=== PATIENT | male | born 1995 | race Two or more races ===

== ENCOUNTER → 2018-11-27 | Outpatient (CLI) | payer BC, OTHER ==
[~2018-11-27] MED LIST: ATIV1TAB7 PO; DEPA1TAB3 PO; DEPA250T2 PO; DEPA500T2 PO; FOLI400T PO; MAGN1TAB26 PO; MULTCAP PO; NICO7DIS2 TD; THIA50CA PO; WELLTAB38 PO
[2018-11-27 17:46] LABS: BASO # 0.1 10^3/uL (0.0-0.2); BASO % 0.6 % (0.0-1.0); EOS # 0.3 10^3/uL (0.0-0.5); EOS % 3.2 % (0.0-3.0); HEMATOCRIT 48.8 % (42.0-52.0); HEMOGLOBIN 16.3 g/dl (13.5-17.5); LYMPH % 35.2 % (24.0-44.0); MEAN CORPUSCULAR HEMOGLOBIN 28.6 pg (27.0-33.0); MEAN CORPUSCULAR HGB CONC 33.4 g/dl (32.0-36.5); MEAN CORPUSCULAR VOLUME 85.8 fl (80.0-96.0); MONO # 0.7 10^3/uL (0.0-0.8); MONO % 8.2 % (0.0-5.0); NEUTROPHILS # 4.5 10^3/uL (1.5-8.5); NEUTROPHILS % 52.6 % (36.0-66.0); PLATELET COUNT, AUTOMATED 340 10^3/uL (150-450); RED BLOOD COUNT 5.69 10^6/uL (4.30-6.10); WHITE BLOOD COUNT 8.5 10^3/uL (4.0-10.0)
[2018-11-27 22:44] LABS: CHLAMYDIA DNA AMPLIFICATION NEGATIVE (NEGATIVE); GC DNA AMPLIFICATION NEGATIVE (NEGATIVE)
[2018-11-30 00:06] LABS: PSA TOTAL 0.8 ng/mL (0.0-4.0)
== END ==
LOC: M LABDRWAD 14:52
PROVIDERS: ATTEND Physician Assistant
DX: R39.12 Poor urinary stream (principal); N53.19 Other ejaculatory dysfunction

== ENCOUNTER 2019-05-13 22:54 | Emergency (ER) | payer BC, OTHER ==
[~2019-05-13] VITALS: Ht 172.7 cm; Wt 94.6 kg
[2019-05-13 23:05] VITALS: BP 180/96
[2019-05-13] MEDS ORDERED: BACT800T5 PO (23:34)
[2019-05-14] MEDS ORDERED: BACTRIM 160MG/800MG DS TAB PO ONE (00:15)
== END 2019-05-14 00:20 | disposition home or self-care (01) ==
LOC: M ED 22:54
DX: N41.0 Acute prostatitis (principal); Z79.2 Long term (current) use of antibiotics

== ENCOUNTER → 2019-06-23 | Outpatient (REF) | payer BC ==
[~2019-06-23] MED LIST changes: +BACT800T5 PO
[2019-06-23 17:34] LABS: ALBUMIN 4.5 GM/DL (3.2-5.2); ALT/SGPT 63 U/L (12-78); BILIRUBIN,TOTAL 0.6 MG/DL (0.2-1.0); BLOOD UREA NITROGEN 12 MG/DL (7-18); CALCIUM LEVEL 9.4 MG/DL (8.5-10.1); CARBON DIOXIDE LEVEL 30 MEQ/L (21-32); CHLORIDE LEVEL 106 MEQ/L (98-107); CHOLESTEROL LEVEL 202 MG/DL (<200); CHOLESTEROL RISK RATIO 5.459 (<5); CREATININE FOR GFR 0.91 MG/DL (0.70-1.30); GLOMERULAR FILTRATION RATE > 60.0 (>60); GLUCOSE, FASTING 94 MG/DL (70-100); HDL CHOLESTEROL 37 MG/DL (>40); LDL CHOLESTEROL 146 MG/DL (<100); NON-HDL-C 165 MG/DL; POTASSIUM SERUM 4.3 MEQ/L (3.5-5.1); SODIUM LEVEL 142 MEQ/L (136-145); TOTAL PROTEIN 8.4 GM/DL (6.4-8.2); TRIGLYCERIDES LEVEL 97 MG/DL (<150)
[2019-06-23 17:45] LABS: BASO # 0.1 10^3/uL (0.0-0.2); BASO % 0.9 % (0.0-1.0); EOS # 0.3 10^3/uL (0.0-0.5); EOS % 3.1 % (0.0-3.0); HEMATOCRIT 46.5 % (42.0-52.0); HEMOGLOBIN 16.1 g/dl (13.5-17.5); LYMPH # 2.7 10^3/uL (1.5-5.0); LYMPH % 32.4 % (24.0-44.0); MEAN CORPUSCULAR HEMOGLOBIN 28.9 pg (27.0-33.0); MEAN CORPUSCULAR HGB CONC 34.6 g/dl (32.0-36.5); MEAN CORPUSCULAR VOLUME 83.5 fl (80.0-96.0); MONO # 0.6 10^3/uL (0.0-0.8); MONO % 6.9 % (0.0-5.0); NEUTROPHILS # 4.6 10^3/uL (1.5-8.5); NEUTROPHILS % 56.6 % (36.0-66.0); PLATELET COUNT, AUTOMATED 336 10^3/uL (150-450); RED BLOOD COUNT 5.57 10^6/uL (4.30-6.10); WHITE BLOOD COUNT 8.2 10^3/uL (4.0-10.0)
[2019-06-23 17:48] LABS: HEMOGLOBIN A1c 5.7 %
[2019-06-23 18:22] LABS: HIV 1&2 SCREEN CENTAUR NEGATIVE (NEGATIVE)
[2019-06-26 08:40] LABS: HEPATITIS C VIRUS ABY INDEX 0.1 INDEX (<0.8)
== END ==
LOC: M SFHCPLAZ 15:11
DX: Z00.00 Encounter for general adult medical examination without abnormal findings (principal)

== ENCOUNTER 2020-01-19 11:07 | Emergency (ER) | payer BC, OTHER ==
[~2020-01-19] VITALS: Ht 172.7 cm; Wt 88.7 kg
[2020-01-19] MEDS ORDERED: ACETAMINOPHEN 500 MG TAB PO ONE (11:30)
--- NOTE | 2020-01-19 11:50 | REP ---
INDICATION: Trauma. COMPARISON: Comparison CT study December 24, 2014.. TECHNIQUE: Helical scanning is acquired. 5 mm axial images were reformatted. Coronal MPR images were generated. FINDINGS: Bone window settings demonstrate an intact bony calvarium. There is no evidence of skull fracture or incidental bony calvarial lesion. The visualized paranasal sinuses appear clear. No intraorbital abnormality is seen. On soft tissue window setting images; the lateral, third, and fourth ventricles are normal in size and position. Viveros-white differentiation pattern is normal above and below the tentorium. There are is no evidence of intracranial hemorrhage. No mass, edema, infarction, or midline shift is seen. No extra-axial fluid collection is appreciated. IMPRESSION: Negative noncontrast head CT. <Electronically signed by Ritesh Magallon > 01/19/20 [id number]
--- NOTE | 2020-01-19 11:53 | REP ---
INDICATION: TRAUMA. COMPARISON: NONE. TECHNIQUE: Helical scanning is acquired and 2 mm axial images re-formatted. Coronal MPR images are generated and reviewed. FINDINGS: Maxillary sinuses are clear. Ethmoid aeration is normal. The sphenoid sinuses are clear. Mastoid aeration is normal and symmetric. The left frontal sinus is not developed. There is a small right frontal sinus is clear. No nasal bone fracture is seen. Bony orbital margins are intact. Paranasal sinus margins are intact. Zygomatic arches are unremarkable. Left nasal Jewel Re is seen. No intra orbital hematoma is seen. The facial soft tissues and visualized intracranial soft tissues are unremarkable. Inferior maxillary spine has an intact appearance. No mandibular fracture is seen. IMPRESSION: Negative maxillofacial CT study. No fracture seen. <Electronically signed by Ritesh Magallon > 01/19/20 [id number]
[2020-01-19 12:20] LABS: ALBUMIN 4.3 GM/DL (3.2-5.2); ALT/SGPT 41 U/L (12-78); BILIRUBIN,DIRECT 0.1 MG/DL (0.0-0.2); BILIRUBIN,TOTAL 0.4 MG/DL (0.2-1.0); BLOOD UREA NITROGEN 9 MG/DL (7-18); CALCIUM LEVEL 9.8 MG/DL (8.5-10.1); CARBON DIOXIDE LEVEL 24 MEQ/L (21-32); CHLORIDE LEVEL 106 MEQ/L (98-107); CREATININE FOR GFR 1.16 MG/DL (0.70-1.30); GLOMERULAR FILTRATION RATE > 60.0 (>60); GLUCOSE, FASTING 83 MG/DL (70-100); POTASSIUM SERUM 4.7 MEQ/L (3.5-5.1); SODIUM LEVEL 138 MEQ/L (136-145); TOTAL PROTEIN 7.7 GM/DL (6.4-8.2)
[2020-01-19] MEDS ORDERED: DIVALPROEX 500 MG TAB PO ONE (13:30)
[2020-01-19] MEDS ORDERED: IBUPROFEN 600MG TAB PO ONE (13:30)
[2020-01-19] MEDS ORDERED: DEPA1TAB3 PO (13:31)
[2020-01-19 13:45] VITALS: BP 112/62
== END 2020-01-19 13:48 | disposition home or self-care (01) ==
LOC: M ED 11:07 → EDBD 11:07 → M ED 13:48
DX: G40.909 Epilepsy, unspecified, not intractable, without status epilepticus (principal); F17.210 Nicotine dependence, cigarettes, uncomplicated; F12.20 Cannabis dependence, uncomplicated

== ENCOUNTER → 2020-02-19 | Outpatient (REF) | payer OTHER | LOC: M LABDRWAD 12:30 | PROVIDERS: ATTEND Internal Medicine | DX: Z79.899 Other long term (current) drug therapy (principal); G40.89 Other seizures ==

== ENCOUNTER 2023-08-03 11:23 | Emergency (ER) | payer OTHER ==
[~2023-08-03] VITALS: Ht 175.3 cm; Wt 77.6 kg
[~2023-08-03 11:23] MED LIST changes: -FOLI400T PO; +FOLI400T13 PO
[2023-08-03 12:50] VITALS: BP 140/96; TEMP 99.1; O2SAT 98
== END 2023-08-03 12:50 | disposition home or self-care (01) ==
LOC: M ED 11:23
DX: S06.0X0A Concussion without loss of consciousness, initial encounter (principal); S00.83XA Contusion of other part of head, initial encounter; Y92.9 Unspecified place or not applicable; Y93.9 Activity, unspecified; Y99.0 Civilian activity done for income or pay; W50.0XXA Accidental hit or strike by another person, initial encounter; I10 Essential (primary) hypertension; F17.210 Nicotine dependence, cigarettes, uncomplicated; Z79.899 Other long term (current) drug therapy

== ENCOUNTER 2023-11-16 12:17 | Emergency (ER) | payer OTHER ==
[~2023-11-16] VITALS: Ht 172.7 cm; Wt 76.5 kg
[2023-11-16] MEDS ORDERED: ZOLO100T (12:34)
[2023-11-16] MEDS ORDERED: LAMO100T3 (12:34)
[2023-11-16] MEDS ORDERED: AMLO1TAB24 (12:34)
[2023-11-16 13:10] LABS: BASO # 0.1 10^3/uL (0.0-0.2); BASO % 0.7 % (0.0-1.0); EOS # 0.2 10^3/uL (0.0-0.5); EOS % 2.2 % (0.0-3.0); HEMATOCRIT 46.8 % (42.0-52.0); HEMOGLOBIN 15.9 g/dl (13.5-17.5); LYMPH % 31.3 % (24.0-44.0); MEAN CORPUSCULAR HEMOGLOBIN 29.7 pg (27.0-33.0); MEAN CORPUSCULAR VOLUME 87.3 fl (80.0-96.0); MONO # 0.6 10^3/uL (0.0-0.8); MONO % 6.3 % (2.0-8.0); NEUTROPHILS # 5.7 10^3/uL (1.5-8.5); NEUTROPHILS % 59.3 % (36.0-66.0); PLATELET COUNT, AUTOMATED 309 10^3/uL (150-450); RED BLOOD COUNT 5.36 10^6/uL (4.30-6.10); WHITE BLOOD COUNT 9.5 10^3/uL (4.0-10.0)
[2023-11-16 13:22] LABS: INR 1.07; PARTIAL THROMBOPLASTIN TIME 29.2 SECONDS (24.8-34.2); PROTHROMBIN TIME 13.6 SECONDS (12.5-14.5)
[2023-11-16 13:32] LABS: ALBUMIN 4.1 G/DL (3.2-5.2); ALKALINE PHOSPHATASE 56 U/L (46-116); ALT/SGPT 19 U/L (7.0-40); AST/SGOT 13 U/L (<34); BILIRUBIN,DIRECT 0.2 MG/DL (<0.4); BILIRUBIN,TOTAL 0.5 MG/DL (0.3-1.2); BLOOD UREA NITROGEN 10 MG/DL (9-23); CALCIUM LEVEL 9.7 MG/DL (8.5-10.1); CARBON DIOXIDE LEVEL 29 MMOL/L (20-31); CHLORIDE LEVEL 105 MMOL/L (98-107); CK-MB VALUE MASS < 1.0 NG/ML (<3.6); CREATININE FOR GFR 0.94 MG/DL (0.70-1.30); GLOMERULAR FILTRATION RATE > 60.0 (>60); GLUCOSE, FASTING 98 MG/DL (60-100); MAGNESIUM LEVEL 1.9 MG/DL (1.8-2.4); SODIUM LEVEL 137 MMOL/L (136-145); TOTAL PROTEIN 7.7 G/DL (5.7-8.2)
[2023-11-16 13:34] LABS: THYROID STIMULATING HORMONE 1.567 uIU/ML (0.55-4.78)
[2023-11-16 13:41] LABS: CPK CREATINE PHOSPHOKINASE 143 U/L (46-171); MB/CK RELATIVE INDEX 0.69 (< OR =4)
[2023-11-16 14:33] LABS: D-DIMER QUANT < 0.27 ug/mL (<0.5)
[2023-11-16 15:06] LABS: CK-MB VALUE MASS < 1.0 NG/ML (<3.6)
[2023-11-16 15:10] LABS: CPK CREATINE PHOSPHOKINASE 143 U/L (46-171); MB/CK RELATIVE INDEX 0.69 (< OR =4)
[2023-11-16] MEDS ORDERED: HOLTER MONITOR XX (15:20)
[2023-11-16 15:24] VITALS: BP 124/83; TEMP 97.1; O2SAT 99
== END 2023-11-16 15:39 | disposition home or self-care (01) ==
LOC: M ED 12:17
DX: R00.2 Palpitations (principal); G40.909 Epilepsy, unspecified, not intractable, without status epilepticus; F17.210 Nicotine dependence, cigarettes, uncomplicated; F12.10 Cannabis abuse, uncomplicated; Z79.899 Other long term (current) drug therapy

== ENCOUNTER → 2023-11-20 | Outpatient (CLI) | payer OTHER ==
[~2023-11-20] MED LIST changes: +AMLO1TAB24; +HOLTER MONITOR XX; +LAMO100T3; +ZOLO100T
== END ==
LOC: M EKG 09:00
PROVIDERS: ATTEND Physician Assistant Medical
DX: R00.2 Palpitations (principal)

== ENCOUNTER → 2025-01-18 | Outpatient (CLI) | payer OTHER ==
[~2025-01-18] MED LIST changes: +DEPA250T PO; -DEPA250T2 PO
[2025-01-18 12:10] LABS: PLATELET COUNT, AUTOMATED 350 10^3/uL (150-450)
[2025-01-18 12:34] LABS: ESTIMATED AVERAGE GLUCOSE 111.0 MG/DL (60-110)
[2025-01-18 12:38] LABS: ALT/SGPT 18 U/L (7.0-40); AST/SGOT 20 U/L (<34); CALCIUM LEVEL 9.9 MG/DL (8.5-10.1); CARBON DIOXIDE LEVEL 30 MMOL/L (20-31); CHLORIDE LEVEL 105 MMOL/L (98-107); CHOLESTEROL LEVEL 186 MG/DL (<200); CHOLESTEROL RISK RATIO 4.51 (<5); CREATININE FOR GFR 0.93 MG/DL (0.70-1.30); GLOMERULAR FILTRATION RATE > 90.0 (>60); LDL CHOLESTEROL 125.4 MG/DL (<100); NON-HDL-C 144.8 MG/DL; POTASSIUM SERUM 4.7 MMOL/L (3.5-5.1); SODIUM LEVEL 141 MMOL/L (136-145); TRIGLYCERIDES LEVEL 97 MG/DL (<150)
== END ==
LOC: M WUC 10:32
DX: F43.10 Post-traumatic stress disorder, unspecified (principal)